=== PATIENT | male | born 1985 | race Caucasian/White ===

== ENCOUNTER 2025-05-06 22:18 | Inpatient (IN) | payer BC, SELFPAY ==
--- OUTSIDE RECORDS SUMMARY | 2025-05-06 22:24 | XMS_ITS | Clinical Summary ---
Author Organization [employer] Address [address] [place] [address] 7[address] [place] [address] Care Team Providers Care Business Development Coordinator Name Role Phone Mary Rodriguez MD Primary Care Provider [phone] Allergies No known active allergies Medications hydrOXYzine pamoate (Vistaril) 25 MG capsule Take 1 capsule (25 mg) by mouth every 6 (six) hours if needed for anxiety. 120 capsule 3 04/08/20 25 Active busPIRone (Buspar) 10 MG tabletIndicatio ns:Anxiety Take 1 tablet (10 mg) by mouth 2 times daily. 60 tablet 04/13/20 026 Active buPROPion XL (Wellbutrin XL) 150 MG 24 hr tabletIndicatio ns:Recurrent major depressive disorder, in partial remission (CMS/HCC) Take 2 tablets (300 mg) by mouth Once per day. Do not crush, chew, or split. 60 tablet 04/13/20 026 Active Tirzepatide-Chet ght Management (Zepbound) 7.5 MG/0.5ML solution auto-injectorIn dications:Depen dence on bilevel positive airway pressure (BiPAP) ventilation due to central sleep apnea,Class 3 severe obesity due to excess calories with serious comorbidity and body mass index (BMI) of 45.0 to 49.9 in adult Inject 0.5 mL (7.5 mg) under the skin 1 (one) time per week. 2 mL 04/13/20 026 Active Tirzepatide-Chet ght Management (Zepbound) 5 MG/0.5ML solution auto-injectorIn dications:Obesi ty (BMI 30-39.9) Inject 0.5 mL (5 mg) under the skin 1 (one) time per week. 2 mL 2 03/02/20 025 Discontinued buPROPion XL (Wellbutrin XL) 150 MG 24 hr tabletIndicatio ns:Recurrent major depressive disorder, in partial remission (CMS/HCC) Take 2 tablets (300 mg) by mouth Once per day. Do not crush, chew, or split. 60 tablet 11 03/02/20 025 Discontinued(Re order (will not trigger notification to Pharmacy)) busPIRone (Buspar) 10 MG tablet Take 10 mg by mouth 2 times daily. 025 Discontinued hydrOXYzine pamoate (Vistaril) 25 MG capsule Take 25 mg by mouth every 4 (four) hours. 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 Has post hospital f/up scheduled with Dr. Nicholson for this coming FridayJul 19, encouraged to keep symptoms diary, see if he can notice any triggers to when the abdominal discomfort occurs (intermittent since this summer per pt). Await hospital records and any lab results from there, defer to MD at upcoming in person visit regarding any followup labs or imaging and pt is in agreement with this. Aware to present to ER if abdominal pain becomes severe or fever or other red flag symptoms develop. Zachariah agrees to this plan and has no further questions or concerns at visit conclusion. Encounter to establish care 05/29/2023 Assessment & Plan (05/29/2023 4:40 PM EDT): Zachariah was seen today to establish care with myself. He states he is feeling ok. He has complaints that he sleeps too much. He states he will sleep from 2558-1799, get the kids ready for school, and then go back to bed for another 2-3h of sleep. His has told him that he snores at night and she has noted that he stops breathing as well. He states that despite all of the hours that he sleeps he does not feel well rested. He states that a sleep study was ordered previously but for some reason it was not coded correctly and his insurance would not pay for it. We will attempt to reorder one; I told him that if there were any problems with it getting covered let us know filiberto. He states he continues with the depression/anxiety and the Bupropion is working well for it at this point. He stated that he is not sure if the depression is related to the sleep problem or if the sleep problem is causing the depression he is feeling. He would like to fix the sleep problem first before changing/adding medications. We will follow up with him in 1y for a physical; we will keep in touch via [facility] for labwork. Severe obstructive sleep apnea 05/29/2023 Assessment & Plan (05/29/2023 4:48 PM EDT): Ongoing concerns of snoring at night. His states that she notes he has had periods of apnea at night. He had a referral to sleep medicine but his insurance would not cover it (? Billing code). We have sent another referral over. He needs to have a sleep study done due to the ongoing concerns with apnea and snoring. He also has ongoing concerns of being tired all day despite lengthy hours sleeping. ? Depression as well but we want to r/o any sleep apnea. GERD without esophagitis 05/29/2023 Assessment & Plan (05/29/2023 4:52 PM EDT): Has been complaining of heartburn at night before bed only. States he usually eats around 1800 and is in bed by 1999. We discussed expanding the length of time from eating to lying down in bed but discussed that he could use OTC Tums for symptom relief. He states he never gets heartburn at any other time during the day. We discussed also having less acidic type foods/tracking what foods he has to cut back on the heartburn. We discussed red flags and if it worsens/Tums does not work/increases in intensity and occurs more often, then we would need to prescribe a PPI and refer to GI. Fatty liver 12/10/2022 Hyperlipidemia 12/10/2022 Assessment & Plan (05/29/2023 4:35 PM EDT): Reviewed last lipid levels with the pt. In discussion with previous provider he stated that they discussed diet changes/activity increase. He states that he has been trying to work on his diet/nutrition and has been doing ok, not great. He states his activity level continues to be low but would like to fix this. We will get another lipid panel, we discussed to have it done soon. We discussed that we will likely put him on medications if his levels are still high. We discussed that he can always get off of medications if his levels approve with changes in diet/activity as well. We ordered a lipid panel. Insomnia due to other mental disorder 12/10/2022 Mood disorder 12/10/2022 Assessment & Plan (07/15/2024 8:30 PM EST): See HPI, awaiting records of recent hospitalization per Zachariah for a bipolar issue . Medications were changed as noted in med reconcilation and review Louisa states he is taking all meds consistently as prescribed at hospital discharge. Confirmed no SI no HI and will keep his in person hospital followup appointment at [facility] as scheduled for 4 days from now. Obesity (BMI 30-39.9) 12/10/2022 Assessment & Plan (05/29/2023 4:42 PM EDT): Would like to lose weight. He cooks most of the meals and tries to cook healthier meals with vegetables and lean meats. He knows he needs to be more active. He is motivated. He will continue trying. Radial styloid tenosynovitis 12/10/2022 Seborrheic dermatitis 12/10/2022 Sleep disturbance 12/10/2022 Resolved Problems Problem Noted Date Diagnosed Date Resolved Date Bipolar disorder, in partial remission, most recent episode mixed 10/06/2024 01/19/2025 Hyponatremia 12/10/2022 01/19/2025 Encounters Date Type Department Care Team Description 05/05/2025 Travel 04/08/2025 Orders Only [facility] Information Management [address] [place] [address] Ruma Adam, 04/08/[address] [place] [address] Ruma Adam DO ER Follow-up 04/08/[address] [place] [address] Ruma Adam DO 04/07/[address] [place] [address] Ruma Adam DO update on patient, manic episode 04/06/[address] [place] [address] Ruma Adam DO Patient switching PCP 03/02/2025 5:20 PM EDT Telemedicine [facility] [address] [place] [address] Mary Rodriguez MD Obesity (BMI 30-39.9); Recurrent major depressive disorder, in partial remission (CMS/HCC) 02/28/[address] [place] [address] Ruma Adam DO 02/23/2025 Travel 02/18/[address] [address] Ruma Adam DO 02/18/[address] [place] [address] Ruma Adam DO Obesity (BMI 30-39.9) (Primary Dx) 02/17/[address] [place] [address] Ruma Adam DO 02/16/[address] [facility] [address] [place] [address] Mary Rodriguez MD Class 3 severe obesity due to excess calories with serious comorbidity and body mass index (BMI) of 45.0 to 49.9 in adult; Dependence on bilevel positive airway pressure (BiPAP) ventilation due to central sleep apnea; Severe obstructive sleep apnea from Last 3 Months Immunizations Immunization Administration Dates Next Due Influenza Injectable Quadriv alant Preservative Free IIV4 MDCK 05/24/2022 Influenza injectable quadriv alent IIV4 with preservative 06/15/2018 Influenza injectable quadrivalent preservative f ree 06/18/2019,06/13/2017 Influenza, Unspecified 07/10/2016 Influenza, seasonal, injectable, preservative fr ee 06/05/2024,08/18/2012 Td (adult), 5 Lf tetanus tox oid, preservative free, adsorbed 06/25/2019 Tdap 09/16/2012 Family History Medical History Relation Name Comments Depression Father's Brother 1 Leonardo Mental illness Father's Brother 2 Scot Early natural Maternal Grandfather Dont know. Arthritis Paternal Grandmother Peyton Sales Relation Name Status Comments Father's Brother 1 Leonardo Father's Brother 2 Scot Maternal Grandfather Dont know. Paternal Grandmother Peyton Sales Social History Tobacco Use Types Packs/Day Years Used Date Smoking Tobacco: Former Cigarettes 1 7.4 0 09/08/2005 - 01/18/2013 Passive Smoke Exposure: Past Smokeless Tobacco: Never Alcohol Use Standard Drinks/Week Comments Not Currently 2 (1 standard drink = 0.6 oz pur e alcohol) weekly Alcohol Answer Date Recorded How often do you have a drink containing alcohol ? 0 01/18/2025 How many drinks containing a lcohol do you have on a typical day when you are drinking? 0 01/18/2025 How often do you have six or more drinks on one occasion? 0 01/18/2025 Housing Stability Answer Date Recorded What is your housing situation today? I have sophia gomez 01/18/[address] you li ve. Do you have problems with any of the following? None of the above 01/18/2025 Food Insecurity Answer Date Recorded Within the past 12 months, y ou worried that your food would run out before you got money to buy more: Never True 01/18/2025 Within the past 12 months,th e food you bought just didn't last and you didn't have enough money to get more: Never True Transportation Answer Date Recorded In the past 12 months, has l ack of transportation kept you from medical appts, meetings, work or from getting things needed for daily living? No 01/18/2025 Intimate Partner Violence Answer Date R ecorded Within the last year, have y ou been afraid of your partner or ex-partner? 2 01/18/2025 Within the last year, have y ou been humiliated or emotionally abused in other ways by your partner or ex-partner? 2 Within the last year, have y ou been kicked, hit, slapped, or otherwise physically hurt by your partner or ex-partner? 2 01/18/2025 Within the last year, have y ou been raped or forced to have any kind of sexual activity by your partner or ex-partner? 2 01/18/2025 Utilities Answer Date Recorded In the past 12 months, has t he electric, gas, oil or water company threatened to shut off services in your home? No 01/18/2025 Depression Answer Date Recorded Patient Health Questionnaire-2 Score 1 01/18/2025 Internet Access Answer Date Recorded Internet Access Q1 Yes 01/18/2025 Internet Access Q2 Not on file 01/18/2025 Education Answer Date Recorded What is the highest level of school you have completed or the highest degree you have received? Associate degree: academic program 05/29/2023 Sex and Gender Information Value Date Recorded Sex Assigned at Male 12/10/2022 8:57 AM EDT Legal Sex Male 8:40 PM EDT Gender Identity Male 12/10/2022 8:57 AM EDT Sexual Orientation Straight 04/01/2023 3: 08 PM EDT Occupation Industry Job Start Date Job End Date Not on file Not on file Not on file Not on file Last Filed Vital Signs Vital Sign Reading Time Taken Comments Blood Pressure 135/84 01/18/2025 4:14 PM EDT Pulse 77 01/18/2025 4:14 PM EDT Temperature 36.7 C (98 F) 08/10/2024 3:45 PM EST Respiratory Rate 16 08/10/2024 3:45 PM EST Oxygen Saturation 95% 01/18/2025 4:14 PM EDT Inhaled Oxygen Concentration - - Weight 150 kg (331 lb) 03/02/2025 5:43 PM EDT Height 182.9 cm (6') 03/02/2025 5:43 PM EDT Body Mass Index 44.89 03/02/2025 5:43 PM EDT Plan of Treatment Health Maintenance Due Date Last Done Comments HIV Screening 1985 HPV Vaccines (1 - Male 3-dose series) 2000 Hepatitis C Screening 2003 Hepatitis A Vaccines (1 of 2 - Risk 2-dose series) 2004 Hepatitis B Vaccines (1 of 3 - 19+ 3-dose series) 2004 Influenza Vaccine (#1) 2025 , 05/24/2022, 06/18/2019, Additional history exists Disability Screening 12/15/2025 12/15/2024 Alcohol/Substance Use Screening 01/18/2026 01/18/2025 Depression Screening 01/18/2026 01/18/2025, 01/19/20 25 Diabetes: Hemoglobin A1C 01/18/2026 01/18/2025, 05/11 Family Planning (PISQ) 01/18/2026 01/18/2025 SDOH Screening 01/18/2026 01/18/2025 Tobacco Screening 01/18/2026 01/18/2025 Lipid Panel 2028 2023, 05/23/2022 DTaP/Tdap/Td Vaccines (3 - Td or Tdap) 06/25/2029 06/25/2019, 09/16/2012 Zoster Vaccines (1 of 2) 2035 RSV Patients and Patients Aged 60 years or older (1 - 1-dose 75+ series) 2060 COVID-19 Vaccine Completed 06/05/2024, , 05/24/2022 HIB Vaccines Aged Out No longer eligi ble based on patient's age to complete this topic IPV Vaccines Aged Out No longer eligi ble based on patient's age to complete this topic Meningococcal B Vaccine Aged Out No l onger eligible based on patient's age to complete this topic Meningococcal Vaccine Aged Out No inge [place] eligible based on patient's age to complete this topic Pneumococcal Vaccine: Pediatrics (0 to 5 Years) and At-Risk Patients (6 to 49) Years Aged Out No longer eligible based on patient's age to complete this topic RSV under 20 months Aged Out No longe r eligible based on patient's age to complete this topic Rotavirus Vaccines Aged Out No longer eligible based on patient's age to complete this topic Procedures Procedure Name Priority Date/Time Associated Diagnosis Comments ECG 12-LEAD Routine 04/07/2025 10:55 AM EDT POCT GLYCOSYLATED HEMOGLOBIN (HGB A1C) Routine 01/18/2025 4:37 PM EDT Obesity (BMI 30-39.9) LIPID PANEL, STANDARD Routine 2023 8:59 AM EDT Encounter to establish care from Last 3 Months or Most Recently Relevant to Health Maintenance Results * ECG 12 lead (04/07/2025 10:55 AM EDT) Ruma Adam DO ECG ORDERABLES Final Result * (ABNORMAL) POCT glycosylated hemoglobin (Hgb A1c) (01/18/2025 4:37 PM EDT) Pathologist [facility] Hemoglobin A1C 5.9 4.0 - 6.0 % Blood Capillary blood specimen / Unknown 01/18/2025 4:37 PM EDT Kiarra Moore LINE LOCATOR POINT OF CARE TEST EN TER/EDIT ORDERABLES Final Result * (ABNORMAL) Lipid panel (2023 8:59 AM EDT) Cholesterol, Total 253(H) (<200) MG/DL [facility] Triglyceride (mg/dL) in Serum/Plasma 172(H) (<150) MG/DL [facility] HDL Cholesterol 48 (>39) MG/DL [facility] LDL Cholesterol, Calculated 171(H) (0-130) MG/DL [facility] Non HDL Chol. (LDL+VLDL) 205(H) (<160) MG/DL [facility] Comment: Testing performed or reported by [facility], a Service of [facility], [address] [place] [address] Gabe Bronson MD, Cushion Maker THOR# [id number] Blood Venous blood specimen / Unknown 2023 8:59 AM EDT 2023 9:01 AM EDT us Viridiana SWARTZ LAB BLOOD ORDERABLES Final Resul t [facility] [address] [place] [phone] from Last 3 Months or Most Recently Relevant to Health Maintenance [place] [address] [place] [address] HMO Care Teams Business Development Coordinator Relationship Specialty Start Date End Date Mary Rodriguez MD [address] [place] [address] PCP - General Family Medicine 04/27/25
--- OUTSIDE RECORDS SUMMARY | 2025-05-06 22:24 | XMS_ITS | Clinical Summary ---
Author Organization [facility] Facility Address [address] [address] Care Team Providers Care Cushion Cover Inspector Name Role Phone Unavailable Primary Care Provider Unavailabl e Social History Tobacco Use Types Packs/Day Years Used Date Smoking Tobacco: Never Assessed Sex and Gender Information Value Date Recorded Sex Assigned at Not on file Legal Sex Male 8:53 AM EDT Gender Identity Not on file Sexual Orientation Not on file Plan of Treatment Health Maintenance Due Date Last Done Comments Hepatitis B Vaccine (1 of 3 - 19+ 3-dose series) 2004 Influenza Vaccine (#1) 2025 Pneumococcal Vaccine: Peds ( 0 to 5 Years) and At-Risk Patients (6 to 49 Years) Aged Out No longer eligible b ased on patient's age to complete this topic Insurance [facility] [place]
--- OUTSIDE RECORDS SUMMARY | 2025-05-06 22:24 | XMS_ITS | Encounter Summary ---
Author Organization [employer] Address [address] [facility] [address] [place] [address] Care Team Providers Care Fraud Manager Name Role Phone Ruma Adam DO Primary Care Provider [phone] Mary Rodriguez MD Primary Care Provider [phone] Inactive/Transferred Primary Care Provider Unava ilable Mary Rodriguez MD Primary Care Provider [phone] Encounter Details Date Type Department Care Team (Late st Contact Info) Description 07/16/2024 Orders Only [facility] Information Management [address] [place] [address] Ruma Adam DO [address] [place] [address] Social History Tobacco Use Types Packs/Day Years Used Date Smoking Tobacco: Never Smokeless Tobacco: Never Alcohol Use Standard Drinks/Week Comments Yes 2 (1 standard drink = 0.6 oz pur e alcohol) weekly Housing Stability Answer Date Recorded What is your housing situation today? I have sophia gomez 07/07/[address] you li ve. Do you have problems with any of the following? None of the above 07/07/2023 Food Insecurity Answer Date Recorded Within the past 12 months, y ou worried that your food would run out before you got money to buy more: Never True 07/07/2023 Within the past 12 months,th e food you bought just didn't last and you didn't have enough money to get more: Never True Transportation Answer Date Recorded In the past 12 months, has l ack of transportation kept you from medical appts, meetings, work or from getting things needed for daily living? No 07/07/2023 Utilities Answer Date Recorded In the past 12 months, has t he electric, gas, oil or water company threatened to shut off services in your home? No 07/07/2023 Depression Answer Date Recorded Patient Health Questionnaire-2 Score 2 05/29/2023 Education Answer Date Recorded What is the [...] Industry Job Start Date Job End Date Unemployed Not on file Not on file Not on file documented as of this encounter Plan of Treatment Not on file documented as of this encounter Procedures Procedure Name Priority Date/Time Associated Diagnosis Comments COMPREHENSIVE METABOLIC PANEL Routine 06/22/2024 10:59 AM EDT XR CHEST 2 VIEWS Routine 06/22/2024 8:55 AM EDT ECG 12-LEAD Routine 06/22/2024 8:54 AM EDT documented in this encounter Results * Comprehensive Metabolic Panel (06/22/2024 10:59 AM EDT) Blood Venous blood specimen / Unknown us Ruma Adam DO LAB BLOOD ORDERABLES Final Res ult * XR Chest 2 Views (06/22/2024 8:55 AM EDT) Anatomical Region Laterality Modality Chest Radiographic Karla ging us Ruma Adam DO IMG XR PROCEDURES Final Result * ECG 12 lead (06/22/2024 8:54 AM EDT) us Ruma Adam DO ECG ORDERABLES Final Result documented in this encounter Visit Diagnoses Not on filedocumented in this encounter Care Teams Fraud Manager Relationship Specialty Start Date End Date Ruma Adam DO [address] [place] [address] PCP - General Family Medicine 06/03/24 04/07/25 Mary Rodriguez MD [address] [place] [address] PCP - General Family Medicine 04/08/25 04/11/25 Inactive/Transferred PCP - General 04/12/25 04/12/25 Mray Rodriguez MD [address] [place] [address] PCP - General Family Medicine 04/27/25 documented as of this encounter
--- OUTSIDE RECORDS SUMMARY | 2025-05-06 22:24 | XMS_ITS | Encounter Summary ---
Author Organization [employer] Address [address] [place] [address] [address] [place] [address] Care Team Providers Care Electric Motor Winder Name Role Phone Ruma Adam DO Primary Care Provider [phone] Mary Rodriguez MD Primary Care Provider [phone] Inactive/Transferred Primary Care Provider Unava ilable Mary Rodriguez MD Primary Care Provider [phone] Reason for Visit * Reason Onset Date Comments Med Refill 02/28/2025 Encounter Details Date Type Department Care Team (Late st Contact Info) Description 02/28/2025 Refill [place] [facility] [address] [place] [address] Ruma Adam DO [address] [place] [address] Social History Tobacco Use Types Packs/Day Years [...] on file documented as of this encounter Visit Diagnoses Not on filedocumented in this encounter Care Teams Electric Motor Winder Relationship Specialty Start Date End Date Ruma Adam DO [address] [place] [address] PCP - General Family Medicine 06/03/24 04/07/25 Mary Rodriguez MD [address] [place] [address] PCP - General Family Medicine 04/08/25 04/11/25 Inactive/Transferred PCP - General 04/12/25 04/12/25 Mary Rodriguez MD [address] [place] [address] PCP - General Family Medicine 04/27/25 documented as of this encounter
--- OUTSIDE RECORDS SUMMARY | 2025-05-06 22:24 | XMS_ITS | Clinical Summary ---
Author Organization [facility] Address [address] [place] [address] Phone Care Team Providers Care Shell Core And Molding Supervisor Name Role Phone Ruma Adam Primary Care Provider [phone] Deysi Bradford MD Unavailable [phone] Allergies No known active allergies Medications busPIRone (BUSPAR) 10 MG tablet Take 10 mg by mouth. 3 08/10/20 25 Active VRAYLAR 3 mg capsule Take 3 mg by mouth. 1 Active ibuprofen (ADVIL,MOTRIN) 200 MG tablet ibuprofen Active Social History Tobacco Use Types Packs/Day Years Used Date Smoking Tobacco: Former Cigarettes Smokeless Tobacco: Never Tobacco Cessation:Counseling Given: Not Answered Education Answer Date Recorded Are you interested in more education? Not on elise e 08/26/2024 Are you concerned about learning? Not on file 08/26/2024 No 08/26/2024 No 08/26/2024 Digital Access Answer Date Recorded No 08/26/2024 No 08/26/2024 Reliable internet access at home? Not on file 08/26/2024 Device with a working camera? Not on file Sex and Gender Information Value Date Recorded Sex Assigned at Not on file Legal Sex Male 9:13 AM EST Gender Identity Not on file Sexual Orientation Not on file Plan of Treatment Upcoming Encounters Date Type Department Care Team ([facility] Contact Info) Description 08/08/2025 10:45 AM EST Office Visit [facility] Orth[facility] & Sports Medicine [address] [place] [phone] Nolvia Patel MD [address] [place] [address] Orthopedics & Sports Medicine, [facility] [place] [address] 08/09/2025 10:45 AM EST Office Visit [facility] Orthopedics & Sports Medicine [address] [place] [address] [id number] Nolvia Patel MD [address] [place] [address] Orthopedics Sports [facility], [place], [place] [phone] [email or web address] 08/19/2025 11:15 AM EST Office Visit [facility] [address] [place] [address] Nolvia Patel MD [address] [place] [address] [facility] [place], [place] [phone] Chanel Shrestha, OT [address] [place] [id number] [email or web address] Health Maintenance Due Date Last Done Comments Adult Td,Tdap Booster 1985 DEPRESSION SCREENING 1997 SMOKING Hx and SMOKELESS TOBACCO SCREENING 1998 HEPATITIS C SCREENING 2003 HIV ONE-TIME SCREENING (18-6 5 YEARS) 2003 INFLUENZA VACCINE (#1) 2025 , 05/24/2022 LIPID PANEL 2028 2023, 05/23/2022 COVID-19 VACCINE Completed 06/05/2024, 06/07/2023, 05/24/2022 HEPATITIS A VACCINES Aged Out No long er eligible based on patient's age to complete this topic HIB VACCINES Aged Out No longer eligi ble based on patient's age to complete this topic MENINGOCOCCAL VACCINES (ACWY) Aged Out No longer eligible based on patient's age to complete this topic MENINGOCOCCAL VACCINES (B) Aged Out N o longer eligible based on patient's age to complete this topic PNEUMOCOCCAL VACCINES (0-49 years) Aged Out No longer eligible b ased on patient's age to complete this topic Medical Devices Not on file Insurance [facility] Care Teams Shell Core And Molding Supervisor Relationship Specialty Start Date End Date Ruma Adam DO [email or web address] PCP - General Family Medicine 08/26/24 Deysi Bradford MD [address] [place] [phone] [email or web address] Insurance Assigned Provider 09/13/24 Additional Source Comments The information contained in this document represents components of the legal health record. It is not the complete legal health record.[facility]
--- OUTSIDE RECORDS SUMMARY | 2025-05-06 22:24 | XMS_ITS | Encounter Summary ---
Author Organization [employer] Address [address] [place] [address] 7 [place] [address] Care Team Providers Care Clinical Data Management Director Name Role Phone Ruma Adam DO Primary Care Provider [phone] Mary Rodriguez MD Primary Care Provider [phone] Inactive/Transferred Primary Care Provider Unava ilable Mary Rodriguez MD Primary Care Provider [phone] Reason for Visit * Reason Onset Date Comments Med Refill 02/17/2025 Encounter Details Date Type Department Care Team (Late st Contact Info) Description 02/17/2025 Refill [place] [facility] MED[facility] [address] [place] [address] Ruma Adam DO [address] [place] [address] Social History Tobacco Use Types Packs/Day Years [...] on filedocumented in this encounter Care Teams Clinical Data Management Director Relationship Specialty Start Date End Date Ruma Adam DO [address] [place] [address] PCP - General Family Medicine 06/03/24 04/07/25 Mary Rodriguez MD [address] [place] [address] PCP - General Family Medicine 04/08/25 04/11/25 Inactive/Transferred PCP - General 04/12/25 04/12/25 Mary Rodriguez MD [address] [place] [address] PCP - General Family Medicine 04/27/25 documented as of this encounter
--- OUTSIDE RECORDS SUMMARY | 2025-05-06 22:24 | XMS_ITS | Encounter Summary ---
Author Organization [employer] Address [address] [place] [address] 7 [place] [address] Care Team Providers Care Measurement Supervisor Name Role Phone Bertha Vaughan Primary Care Provider Un available Viridiana Cruz Primary Care Provider Ruma Kang DO Primary Care Provider [phone] Mary Rodriguez MD Primary Care Provider [phone] Inactive/Transferred Primary Care Provider Unava ilable Mary Rodriguez MD Primary Care Provider [phone] Reason for Visit * Reason Comments Med Refill Encounter Details Date Type Department Care Team (Late st Contact Info) Description 03/20/2023 Refill [facility] MEDICAL [address] [place] [address] Mary Rodriguez MD [address] [place] [address] Unspecified mood (affective) disorder (CMS/HCC) Social History Tobacco Use Types Packs/Day Years Used Date Smoking Tobacco: Never Assessed Sex and Gender Information Value Date Recorded Sex Assigned at Male 12/10/2022 8:57 AM EDT Legal Sex Male 8:40 PM EDT Gender Identity Male 12/10/2022 8:57 AM EDT Sexual Orientation Straight 04/01/2023 3: 08 PM EDT documented as of this encounter Plan of Treatment Not on file documented as of this encounter Visit Diagnoses Diagnosis Unspecified mood (affective) disorder (CMS/HCC) documented in this encounter Care Teams Measurement Supervisor Relationship Specialty Start Date End Date Bertha Vaughan FNP PCP - General Family Medicine 12/10/22 05/14/23 Viridiana Cruz PA PCP - General Family Medicine 05/15/23 06/02/24 Ruma Adam DO [address] [place] [address] PCP - General Family Medicine 06/03/24 04/07/25 Mary Rodriguez MD [address] [place] [address] PCP - General Family Medicine 04/08/25 04/11/25 Inactive/Transferred PCP - General 04/12/25 04/12/25 Mary Rodriguez MD [address] [place] [address] PCP - General Family Medicine 04/27/25 documented as of this encounter
--- OUTSIDE RECORDS SUMMARY | 2025-05-06 22:24 | XMS_ITS | Encounter Summary ---
Author Organization [employer] Address [address] [facility] 7t [place] [address] Care Team Providers Care Painter Set Name Role Phone Mary Rodriguez MD Primary Care Provider [phone] Inactive/Transferred Primary Care Provider Unava Mary Amaya MD Primary Care Provider [phone] Encounter Details Date Type Department Care Team ([facility] st Contact Info) Description 04/08/2025 Orders Only [place] [facility] [address] [place] [address] Ruma Adam, [address] [place] [address] Social History Tobacco Use Types Packs/Day Years [...] ECG 12-LEAD Routine 04/07/2025 10:55 AM EDT documented in this encounter Results * ECG 12 lead (04/07/2025 10:55 AM EDT) Ruma Adam DO ECG ORDERABLES Final Result documented in this encounter Visit Diagnoses Not on filedocumented in this encounter Care Teams Painter Set Relationship Specialty Start Date End Date Mary Rodriguez MD [address] [place] [address] PCP - General Family Medicine 04/08/25 04/11/25 Inactive/Transferred PCP - General 04/12/25 04/12/25 Mary Rodriguez MD [address] [place] [address] PCP - General Family Medicine 04/27/25 documented as of this encounter
--- OUTSIDE RECORDS SUMMARY | 2025-05-06 22:24 | XMS_ITS | Encounter Summary ---
Author Organization [employer] Address [address] [facility] 7t [place] [address] Care Team Providers Care Profile Stitching Machine Operator Name Role Phone Ruma Adam DO Primary Care Provider [phone] Mary Rdoriguez MD Primary Care Provider [phone] Inactive/Transferred Primary Care Provider Unava ilable Mary Rodriguez MD Primary Care Provider [phone] Encounter Details Date Type Department Care Team (Late st Contact Info) Description 09/18/2024 Orders Only [place] [facility] [address] [place] [address] Ruma Adam DO [address] [place] [address] Social History Tobacco Use Types Packs/Day Years [...] Procedure Name Priority Date/Time Associated Diagnosis Comments POLYSOMNOGRAM Routine 09/14/2024 8:08 AM EST documented in this encounter Results * Polysomnography (09/14/2024 8:08 AM EST) Ruma Adam DO [facility] ORDERABLES Final Result documented in this encounter Visit Diagnoses Not on filedocumented in this encounter Care Teams Profile Stitching Machine Operator Relationship Specialty Start Date End Date Ruma Adam DO [address] [place] [address] PCP - General Family Medicine 06/03/24 04/07/25 Mary Rodriguez MD [address] [place] [address] PCP - General Family Medicine 04/08/25 04/11/25 Inactive/Transferred PCP - General 04/12/25 04/12/25 Mary Rodriguez MD [address] [place] [address] PCP - General Family Medicine 04/27/25 documented as of this encounter
--- OUTSIDE RECORDS SUMMARY | 2025-05-06 22:24 | XMS_ITS | Encounter Summary ---
Author Organization [employer] Address [address] [place] [address] 7t [place] [address] Care Team Providers Care Summer Babysitter Name Role Phone Mary Rodriguez MD Primary Care Provider [phone] Encounter Details Date Type Department Care Team (Latest Contact Info) Description 05/05/2025 Travel Social History Tobacco Use Types Packs/Day Years [...] your housing situation today? I have sophia patricia 01/18/[address] you li [...] on filedocumented in this encounter Care Teams Summer Babysitter Relationship Specialty Start Date End Date Mary Rodriguez MD [address] [place] [address] PCP - General Family Medicine 04/27/25 documented as of this encounter
[2025-05-06 22:36] VITALS: RESP 22
[2025-05-06 23:04] VITALS: BP 134/78; PULSE 92; RESP 18; TEMP 36.7; O2SAT 96
[2025-05-06 23:08] VITALS: BMI 40.9
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
[2025-05-07 07:41] VITALS: BP 109/53; PULSE 80; RESP 16; TEMP 37.2; O2SAT 97
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
[2025-05-07] MEDS: buPROPion HCl XL 300 MG TAB.ER.24H PO (08:46)
[2025-05-07 09:47] LABS: Alanine Aminotransferase 74 U/L (0-40); Albumin Level 4.3 g/dL (3.5-5.0); Alkaline Phosphatase 76 U/L (39-117); Anion Gap 13 (12-20); Aspartate Amino Transferase 45 U/L (5-37); Blood Urea Nitrogen 14 mg/dL (9-16); Calcium 9.2 mg/dL (8.4-10.2); Carbon Dioxide 26 mmol/L (22-29); Chloride 106 mmol/L (96-108); Cholesterol 201 mg/dL (<200); Creatinine Clr Calc Pharmacy 115.9; Estimated Glomerular Filt Rate > 60; HDL Cholesterol 38 mg/dL (>40); Potassium 4.3 mmol/L (3.3-5.1); Sodium 141 mmol/L (135-145); Total Protein 7.0 g/dL (6.5-8.0); Triglycerides 80 mg/dL (<150)
[2025-05-07 09:50] LABS: Hemoglobin A1C 138.5496 umol/L; Total Hemoglobin (HGBA1C) 3975.5366 umol/L
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
[2025-05-07 19:20] VITALS: BP 129/80; PULSE 90; RESP 18; TEMP 36.8; O2SAT 97
[2025-05-07] MEDS: Nicotine Polacrilex Lozenge 2 MG LOZENGE BUCCAL (20:06)
[2025-05-07 22:34] VITALS: RESP 20; O2SAT 96
[2025-05-08] MEDS: Nicotine Polacrilex Lozenge 2 MG LOZENGE BUCCAL ×3 (05:57→09:49)
[2025-05-08 07:36] VITALS: BP 133/85; PULSE 89; RESP 16; TEMP 36.3; O2SAT 98
--- NOTE | 2025-05-08 08:29 | P.PNPSI_ITS ---
Subjective Subjective Date of Service: 05/08/25 Reason For Visit: Unspecified Bipolar disorder Subjective Notes: 3 Day Interim History: Active on unit. social with peers. attending groups. Patient reports feeling anxious, however looking forward to his visiting today. He reports sleeping well last night. denies any side effects from increase in Buspar. denies SI/HI/VH/AH. Continue current tx plan. Medication Compliance: Yes Side effects from medications: No Attending Groups: Yes Mental Status Exam Mental Status Exam Narrative: Pt is alert and oriented; behavior is cooperative and calm; dressed in casual attire; mood is described as anxious ; eye contact appropriate; Speech is normal rate, volume and not pressured; thought process is organized; Thought content is on tx; denies SI/HI/VH/AH. Diagnostics Vital Signs (24Hr): Vital Signs - 24 hr 05/07/25 19:20 05/07/25 22:34 05/08/25 07:36 Temperature 98.3 F 97.3 F Pulse Rate 90 89 Respiratory Rate 18 20 16 Blood Pressure 129/80 133/85 Pulse Oximetry 97 98 Oxygen Delivery Method Room Air Room Air BMI result Body Mass Index 40.9 Labs 05/07/25 08:36 Labs: Laboratory Results - last 48 hr 05/07/25 05/07/25 08:36 08:37 Sodium 141 Potassium 4.3 Chloride 106 Carbon Dioxide 26 Anion Gap 13 BUN 14 Creatinine 1.19 Estim Creat Clear Calc 115.9 Estimated GFR > 60 Random Glucose 112 Estimat Average Glucose 105 Hemoglobin A1c % 5.3 Calcium 9.2 Total Bilirubin 0.6 AST 45 H ALT 74 H Alkaline Phosphatase 76 Total Protein 7.0 Albumin 4.3 Triglycerides 80 Cholesterol 201 H LDL Cholesterol, Calc 147 H HDL Cholesterol 38 L Medications Medications Current Medications Acetaminophen (Acetaminophen 325 Mg Tablet) 650 mg PO Q6H PRN PRN Reason: Headache/Pain, Scale 1-10 Al Hydroxide/Mg Hydroxide (Magnesium Hydrox/Alum Hydrox 30 Ml Oral.Susp) 30 ml PO Q6H PRN PRN Reason: Heartburn/Nausea Bupropion HCl (Bupropion Hcl Xl 300 Mg Tab.Er.24h) 300 mg PO DAILY [facility] Last Admin: 05/07/25 08:46 Dose: 300 mg Buspirone HCl (Buspirone Hcl 5 Mg Tablet) 15 mg PO BID [facility] Last Admin: 05/07/25 20:12 Dose: 15 mg Hydroxyzine HCl (Hydroxyzine Hcl 25 Mg Tablet) 25 mg PO Q6H PRN PRN Reason: mild anxiety Last Admin: 05/07/25 15:58 Dose: 25 mg Magnesium Hydroxide (Milk Of Magnesia 30 Ml Oral.Susp) 30 ml PO DAILY PRN PRN Reason: Constipation Melatonin (Melatonin 3 Mg Tablet) 9 mg PO BEDTIME [facility] Last Admin: 05/07/25 20:12 Dose: 9 mg Nicotine Polacrilex (Nicotine Polacrilex Lozenge 2 Mg Lozenge) 2 mg BUCCAL Q2H PRN PRN Reason: Nicotine Cravings Last Admin: 05/08/25 07:34 Dose: 2 mg Non-Formulary Medication (Tirzepatide (Weight Loss) [Zepbound]) 7.5 mg SUBCUT QWEEK [facility] Olanzapine (Olanzapine 5 Mg Tablet) 5 mg PO Q4H PRN PRN Reason: psychosis/agitation Trazodone HCl (Trazodone Hcl 50 Mg Tablet) 50 mg PO BEDTIME MRX1 PRN PRN Reason: Insomnia Last Admin: 05/08/25 01:42 Dose: 50 mg Allergies Allergies Allergy/AdvReac Type Severity Reaction Status Date / Time No Known Allergies Allergy Verified 05/06/25 23:08 Assessment & Plan Assessment & Plan (1) MDD (major depressive disorder), recurrent episode: Status: Acute Code(s): F33.9 - Major depressive disorder, recurrent, unspecified (2) PTSD (post-traumatic stress disorder): Status: Acute Code(s): F43.10 - Post-traumatic stress disorder, unspecified Plan Patient is a 39 year old male with hx of MDD, PTSD who self presented to ER d/t paranoia and insomnia secondary to increased anxiety and panic attacks over the last six weeks. Plan: CV 15 minute safety checks continue home medications Increase Buspar to 15mg PO BID obtain collateral encourage groups discharge planning 05/08: Active on unit. social with peers. attending groups. Patient reports feeling anxious, however looking forward to his visiting today. He reports sleeping well last night. denies any side effects from increase in Buspar. denies SI/HI/VH/AH. Continue current tx plan. Patient educated on: diagnosis, medication risk/benefits and therapeutic strategies Reason for continued inpatient stay Substantial Risk for: med/psych decompensation Time Spent With Patient Time: Total time managing care of this patient today _60___ minutes.
[2025-05-08] MEDS: buPROPion HCl XL 300 MG TAB.ER.24H PO (08:32)
[2025-05-08 20:00] VITALS: BP 126/83; PULSE 89; RESP 16; TEMP 36.4; O2SAT 98
[2025-05-09 07:15] VITALS: BP 117/55; PULSE 84; RESP 16; TEMP 36.3; O2SAT 98
[2025-05-09] MEDS: buPROPion HCl XL 300 MG TAB.ER.24H PO (08:19)
--- NOTE | 2025-05-09 13:21 | HO.PSYCHPN ---
Subjective Subjective Date of Service: 05/09/25 Reason For Visit: Unspecified Bipolar disorder Subjective Notes: 3 Day Interim History: 3 day notice up on 05/12/25; pt requesting to be discharged prior to 3 day being up. Patient reports feeling anxious but states its tolerable . He reports he is no longer feeling paranoid. social with peers. attending groups. denies SI/HI/VH/AH. Continue current tx plan. Medication Compliance: Yes Side effects from medications: No Attending Groups: Yes Mental Status Exam Mental Status Exam Narrative: Pt is alert and oriented; behavior is cooperative and calm; dressed in casual attire; mood is described as anxious ; eye contact appropriate; Speech is normal rate, volume and not pressured; thought process is organized; Thought content is on tx; denies SI/HI/VH/AH. Diagnostics Vital Signs (24Hr): Vital Signs - 24 hr 05/08/25 20:00 05/09/25 07:15 Temperature 97.6 F 97.4 F Pulse Rate 89 84 Respiratory Rate 16 16 Blood Pressure 126/83 117/55 L Pulse Oximetry 98 98 Oxygen Delivery Method Room Air Room Air BMI result Body Mass Index 40.9 Labs 05/07/25 08:36 Medications Medications Current Medications Acetaminophen (Acetaminophen 325 Mg Tablet) 650 mg PO Q6H PRN PRN Reason: Headache/Pain, Scale 1-10 Last Admin: 05/09/25 10:04 Dose: 650 mg Al Hydroxide/Mg Hydroxide (Magnesium Hydrox/Alum Hydrox 30 Ml Oral.Susp) 30 ml PO Q6H PRN PRN Reason: Heartburn/Nausea Bupropion HCl (Bupropion Hcl Xl 300 Mg Tab.Er.24h) 300 mg PO DAILY [facility] Last Admin: 05/09/25 08:19 Dose: 300 mg Buspirone HCl (Buspirone Hcl 5 Mg Tablet) 15 mg PO BID [facility] Last Admin: 05/09/25 08:19 Dose: 15 mg Hydroxyzine HCl (Hydroxyzine Hcl 25 Mg Tablet) 25 mg PO Q6H PRN PRN Reason: mild anxiety Last Admin: 05/08/25 23:25 Dose: 25 mg Magnesium Hydroxide (Milk Of Magnesia 30 Ml Oral.Susp) 30 ml PO DAILY PRN PRN Reason: Constipation Melatonin (Melatonin 3 Mg Tablet) 9 mg PO BEDTIME [facility] Last Admin: 05/08/25 19:50 Dose: 9 mg Nicotine Polacrilex (Nicotine Polacrilex Lozenge 2 Mg Lozenge) 2 mg BUCCAL Q2H PRN PRN Reason: Nicotine Cravings Last Admin: 05/08/25 09:49 Dose: 2 mg Olanzapine (Olanzapine 5 Mg Tablet) 5 mg PO Q4H PRN PRN Reason: psychosis/agitation Trazodone HCl (Trazodone Hcl 50 Mg Tablet) 50 mg PO BEDTIME MRX1 PRN PRN Reason: Insomnia Last Admin: 05/08/25 23:25 Dose: 50 mg Allergies Allergies Allergy/AdvReac Type Severity Reaction Status Date / Time No Known Allergies Allergy Verified 05/06/25 23:08 Assessment & Plan Assessment & Plan (1) MDD (major depressive disorder), recurrent episode: Status: Acute Code(s): F33.9 - Major depressive disorder, recurrent, unspecified (2) PTSD (post-traumatic stress disorder): Status: Acute Code(s): F43.10 - Post-traumatic stress disorder, unspecified Plan Patient is a 39 year old male with hx of MDD, PTSD who self presented to ER d/t paranoia and insomnia secondary to increased anxiety and panic attacks over the last six weeks. Plan: CV 15 minute safety checks continue home medications Increase Buspar to 15mg PO BID obtain collateral encourage groups discharge planning 05/08: Active on unit. social with peers. attending groups. Patient reports feeling anxious, however looking forward to his visiting today. He reports sleeping well last night. denies any side effects from increase in Buspar. denies SI/HI/VH/AH. Continue current tx plan. 05/09: 3 day notice up on 05/12/25; pt requesting to be discharged prior to 3 day being up. Patient reports feeling anxious but states its tolerable . He reports he is no longer feeling paranoid. social with peers. attending groups. denies SI/HI/VH/AH. Continue current tx plan. Patient educated on: diagnosis, medication risk/benefits and therapeutic strategies Reason for continued inpatient stay Substantial Risk for: med/psych decompensation Time Spent With Patient Time: Total time managing care of this patient today __20__ minutes.
[2025-05-09 20:00] VITALS: BP 130/70; PULSE 75; RESP 18; TEMP 36.3; O2SAT 98
[2025-05-09 20:41] VITALS: PULSE 72; RESP 17; O2SAT 98
[2025-05-10 07:30] VITALS: BP 158/91; PULSE 95; RESP 18; TEMP 36.3; O2SAT 96
[2025-05-10 07:44] VITALS: BP 140/73
[2025-05-10] MEDS: buPROPion HCl XL 300 MG TAB.ER.24H PO (08:23)
--- NOTE | 2025-05-10 10:59 | HO.PSYCHPN ---
Subjective Subjective Date of Service: 05/10/25 Reason For Visit: Unspecified Bipolar disorder Subjective Notes: 3 Day Interim History: 3 day notice up on 05/12/25; Patient reports feeling anxious but overall doing well. Patient reports he has outpatient appointments with [facility]. social with peers. attending groups. denies SI/HI/VH/AH. Plans to discharge home tomorrow. Medication Compliance: Yes Side effects from medications: No Attending Groups: Yes Mental Status Exam Mental Status Exam Narrative: Pt is alert and oriented; behavior is cooperative and calm; dressed in casual attire; mood is described as anxious ; eye contact appropriate; Speech is normal rate, volume and not pressured; thought process is organized; Thought content is on discharge; denies SI/HI/VH/AH. Diagnostics Vital Signs (24Hr): Vital Signs - 24 hr 05/09/25 20:00 05/09/25 20:41 05/10/25 07:30 Temperature 97.4 F 97.4 F Pulse Rate 75 95 Respiratory Rate 18 17 18 Blood Pressure 130/70 158/91 H Pulse Oximetry 98 96 Oxygen Delivery Method Room Air Room Air 05/10/25 07:44 Temperature Pulse Rate Respiratory Rate Blood Pressure 140/73 H Pulse Oximetry Oxygen Delivery Method BMI result Body Mass Index 40.9 Labs 05/07/25 08:36 Medications Medications Current Medications Acetaminophen (Acetaminophen 325 Mg Tablet) 650 mg PO Q6H PRN PRN Reason: Headache/Pain, Scale 1-10 Last Admin: 05/09/25 17:59 Dose: 650 mg Al Hydroxide/Mg Hydroxide (Magnesium Hydrox/Alum Hydrox 30 Ml Oral.Susp) 30 ml PO Q6H PRN PRN Reason: Heartburn/Nausea Bupropion HCl (Bupropion Hcl Xl 300 Mg Tab.Er.24h) 300 mg PO DAILY [facility] Last Admin: 05/10/25 08:23 Dose: 300 mg Buspirone HCl (Buspirone Hcl 5 Mg Tablet) 15 mg PO BID [facility] Last Admin: 05/10/25 08:22 Dose: 15 mg Hydroxyzine HCl (Hydroxyzine Hcl 25 Mg Tablet) 25 mg PO Q6H PRN PRN Reason: mild anxiety Last Admin: 05/10/25 01:17 Dose: 25 mg Ibuprofen (Ibuprofen 600 Mg Tablet) 600 mg PO Q8H PRN PRN Reason: Pain, Moderate(Pain Scale 4-6) Last Admin: 05/09/25 23:29 Dose: 600 mg Magnesium Hydroxide (Milk Of Magnesia 30 Ml Oral.Susp) 30 ml PO DAILY PRN PRN Reason: Constipation Melatonin (Melatonin 3 Mg Tablet) 9 mg PO BEDTIME [facility] Last Admin: 05/09/25 19:54 Dose: 9 mg Nicotine Polacrilex (Nicotine Polacrilex Lozenge 2 Mg Lozenge) 2 mg BUCCAL Q2H PRN PRN Reason: Nicotine Cravings Last Admin: 05/08/25 09:49 Dose: 2 mg Olanzapine (Olanzapine 5 Mg Tablet) 5 mg PO Q4H PRN PRN Reason: psychosis/agitation Trazodone HCl (Trazodone Hcl 50 Mg Tablet) 50 mg PO BEDTIME MRX1 PRN PRN Reason: Insomnia Last Admin: 05/10/25 01:16 Dose: 50 mg Allergies Allergies Allergy/AdvReac Type Severity Reaction Status Date / Time No Known Allergies Allergy Verified 05/06/25 23:08 Assessment & Plan Assessment & Plan (1) MDD (major depressive disorder), recurrent episode: Status: Acute Code(s): F33.9 - Major depressive disorder, recurrent, unspecified (2) PTSD (post-traumatic stress disorder): Status: Acute Code(s): F43.10 - Post-traumatic stress disorder, unspecified Plan Patient is a 39 year old male with hx of MDD, PTSD who self presented to ER d/t paranoia and insomnia secondary to increased anxiety and panic attacks over the last six weeks. Plan: CV 15 minute safety checks continue home medications Increase Buspar to 15mg PO BID obtain collateral encourage groups discharge planning 05/08: Active on unit. social with peers. attending groups. Patient reports feeling anxious, however looking forward to his visiting today. He reports sleeping well last night. denies any side effects from increase in Buspar. denies SI/HI/VH/AH. Continue current tx plan. 05/09: 3 day notice up on 05/12/25; pt requesting to be discharged prior to 3 day being up. Patient reports feeling anxious but states its tolerable . He reports he is no longer feeling paranoid. social with peers. attending groups. denies SI/HI/VH/AH. Continue current tx plan. 05/10: 3 day notice up on 05/12/25; Patient reports feeling anxious but overall doing well. Patient reports he has outpatient appointments with [facility]. social with peers. attending groups. denies SI/HI/VH/AH. Plans to discharge home tomorrow. Patient educated on: diagnosis, medication risk/benefits and therapeutic strategies Reason for continued inpatient stay Substantial Risk for: stable for discharge Time Spent With Patient Time: Total time managing care of this patient today __20__ minutes.
[2025-05-10 20:00] VITALS: BP 135/73; PULSE 79; RESP 18; TEMP 36.9; O2SAT 97
[2025-05-11 07:15] VITALS: BP 138/63; PULSE 85; RESP 16; TEMP 36.7; O2SAT 98
[2025-05-11] MEDS: buPROPion HCl XL 300 MG TAB.ER.24H PO (08:33)
--- NOTE | 2025-05-11 08:54 | PM.PSYDC ---
DS: Providers Provider Date of Service: 05/11/25 Date of admission: 05/06/25 22:18 Date of discharge: 05/11/25 Primary care physician: Mary Rodriguez MD Admitting clinician: Seble Lopez Attending physician on admission: Salazar Ortez Consults: 05/06/25 23:10 Consult to Hospitalist Routine Comment: Consulting Provider: [facility] Hospitalists Reason For Exam: new admit, H&P Attending physician on discharge: Salazar Ortez Discharging clinician: Seble Lopez DS: Diagnosis Discharge Diagnosis (1) MDD (major depressive disorder), recurrent episode: Status: Acute (2) PTSD (post-traumatic stress disorder): Status: Acute DS: Medications Discharge Medications Home Medications: Home Medications ?Medication ?Instructions ?Recorded ?Confirmed bupropion HCl 150 mg 24 hr tablet, 300 mg PO DAILY 05/06/25 05/06/25 extended release hydroxyzine pamoate 25 mg capsule 25 mg PO Q6H 05/06/25 05/06/25 tirzepatide (weight loss) 2.5 7.5 mg subcut QWEEK 05/06/25 05/06/25 mg/0.5 mL subcutaneous pen injector (Zepbound) Previous Rx's ?Medication ?Instructions ?Recorded buspirone 15 mg tablet 15 mg PO BID 30 days #60 tabs 05/10/25 Mental Status Exam Mental Status Exam Narrative: Pt is alert and oriented; behavior is cooperative and calm; dressed in casual attire; mood is described as good ; eye contact appropriate; Speech is normal rate, volume and not pressured; thought process is organized; Thought content is on discharge; denies SI/HI/VH/AH. Data Data Completed and Pending Completed studies during hospitalization [Text1]: 05/07/25 05/07/25 08:36 08:37 Sodium 141 Potassium 4.3 Chloride 106 Carbon Dioxide 26 Anion Gap 13 BUN 14 Creatinine 1.19 Estim Creat Clear Calc 115.9 Estimated GFR > 60 Random Glucose 112 Estimat Average Glucose 105 Hemoglobin A1c % 5.3 Calcium 9.2 Total Bilirubin 0.6 AST 45 H ALT 74 H Alkaline Phosphatase 76 Total Protein 7.0 Albumin 4.3 Triglycerides 80 Cholesterol 201 H LDL Cholesterol, Calc 147 H HDL Cholesterol 38 L DS: Summary Hospital Course Hospital Course: Patient is a 39 year old male with hx of MDD, PTSD who self presented to ER d/t paranoia and insomnia secondary to increased anxiety and panic attacks over the last six weeks. Per crisis report, pt reports his anxiety and panic attacks have increased over the last six weeks. He reports insomnia and paranoid thoughts that his anxiety will ruin his marriage. Patient called 911 multiple times the night prior d/t high anxiety. Patient has an intake with outpatient services in 3 weeks. Patient reports he began having paranoia at work 6 weeks ago after someone at work was fired. He reported he became paranoid he would be fired and was worried the company was being hacked on the computer. Patient reports increased anxiety secondary to trying to get off the sex offender register. denies SI/HI/VH/AH.Patient reports being medication compliant. Patient attempted to leave ER and required staff to physically restrain him for a few minutes. utox positive for THC. hx of 2 other inpatient psychiatric admissions. denies hx of SA/SIB. During admission assessment, pt presents alert and oriented x3. calm and cooperative. Patient reports feeling anxious ; pt stated, I was having a panic attack. I shouldn't have called 911. They said they recommended inpatient so I'm here. I'm trying to get off the sex offender registry and I think it;s bringing back old memories . patient denies SI/HI/VH/AH. Patient reports he is on a waiting list for outpatient psychiatric providers. Patient believes his current medication regimen is helpful however is open to medication changes since he is experience more stress at the moment. He receives his prescribed medications from his PCP. Plan: CV 15 minute safety checks continue home medications Increase Buspar to 15mg PO BID obtain collateral encourage groups discharge planning Active on unit. social with peers. attending groups. Patient reports feeling anxious, however looking forward to his visiting today. He reports sleeping well last night. denies any side effects from increase in Buspar. denies SI/HI/VH/AH. Continue current tx plan. 3 day notice up on 05/12/25; pt requesting to be discharged prior to 3 day being up. Patient reports feeling anxious but states its tolerable . He reports he is no longer feeling paranoid. social with peers. attending groups. denies SI/HI/VH/AH. Continue current tx plan. 3 day notice up on 05/12/25; Patient reports feeling anxious but overall doing well. Patient reports he has outpatient appointments with [facility]. social with peers. attending groups. denies SI/HI/VH/AH. Plans to discharge home tomorrow. Patient continues to feeling good ; denies SI/HI/VH/AH. Patient reports he plans on following up with outpatient providers. Status at Discharge Cognitive/behavioral status at discharge: Patient has insight and demonstrates good judgment in terms of wanting to pursue treatment. Patient has a safety plan that includes presenting to the closest ER or calling 911 if feeling unsafe. Functional status at discharge: independent ambulation Overall status at discharge: patient is back to baseline Time Spent with Patient Time attestation: Total time managing care of this patient today _20___ minutes. Time spent: Less than 30 minutes Discharge Plan Discharge Anticipated Discharge Date/Time: 05/11/25 08:54 Patient Disposition: Home, Self-Care Discharge Diagnosis: MDD, PTSD Referrals: Therapy & Psychiatry [Other] - 1 Week Referral Note: *Please follow up with your outpatient providers through [facility]. If you need to be seen right away, you can present as a walk in to the clinic listed above, Friday through Friday during the hours of 8am and 8pm. Mary Rodriguez MD [Primary Care Provider, Medical] - 05/16/25 10:30 am Referral Note: 05-10-25 Your follow up appt has been scheduled for 05-16-25 @10:30am with Dr. Nicholson at the [address] [place] [address] location. Discharge Medications: New buspirone 15 mg tablet 15 mg PO BID 30 Days Qty: 60 0RF Continued hydroxyzine pamoate 25 mg capsule 25 mg PO Q6H bupropion HCl 150 mg tablet extended release 24 hr 300 mg PO DAILY Zepbound 2.5 mg/0.5 mL pen injector 7.5 mg SUBCUT QWEEK Rx Instructions: Pt takes every Friday Discontinued buspirone 10 mg tablet 10 mg PO BID Discharge Orders: Discharge Order (Routine); Ordered 05/11/25 Ordered By: Seble Lopez Diet: Regular diet Activity on Discharge: As tolerated Stand Alone Forms: Patient Portal Discharge page, Community Support Print Language: Lithuanian Care Plan Goals: Maintain mood and safe behaviors Take medications as prescribed Practice coping skills Continue with outpatient providers and reach out to them as needed Health Concerns: Mood stability and behaviors Plan of Treatment: Follow up with your PCP, psychiatric provider and other outpatient providers regarding above concerns Take medications as prescribed Assessment: Patient has insight and demonstrates good judgment in terms of wanting to pursue treatment. Patient has a safety plan that includes presenting to the closest ER or calling 911 if feeling unsafe.
--- NOTE | 2025-05-11 13:35 | PC.NURSE ---
Caleb presenting with bizarre statements to nurse I don't want to pace the unit, I don't want people to look at me. I don't think I should go to groups because I have been talking about sex and alcohol and I think I am triggering people. Seble Lopez NIGHT WORKER made aware.
== END 2025-05-11 15:26 | disposition home or self-care (01) | DRG 751 ==
PROVIDERS: Admitting Provider Psychiatry & Neurology Psychiatry; PCP Family Medicine; Responsible Provider Registered Nurse; Visit Provider Psychiatry & Neurology Psychiatry
DX: F33.9 Major depressive disorder, recurrent, unspecified (principal); F43.10 Post-traumatic stress disorder, unspecified; Z79.899 Other long term (current) drug therapy
CPT/HCPCS: 36415; 80053; 80061; 83036; 94660

== ENCOUNTER → 2025-05-06 22:18 | Outpatient (BNV) | payer BC, SELFPAY | PROVIDERS: Admitting Provider Psychiatry & Neurology Psychiatry; PCP Family Medicine; Visit Provider Physician Assistant | DX: Z02.2 Encounter for examination for admission to residential institution (principal); F22 Delusional disorders | CPT/HCPCS: 99429 ==

== ENCOUNTER → 2025-05-06 22:18 | Outpatient (BNV) | payer BC, SELFPAY | PROVIDERS: Admitting Provider Psychiatry & Neurology Psychiatry; PCP Family Medicine; Responsible Provider Registered Nurse; Visit Provider Registered Nurse | DX: F33.2 Major depressive disorder, recurrent severe without psychotic features (principal); F43.11 Post-traumatic stress disorder, acute | CPT/HCPCS: 90792; 99231; 99232; 99238 ==